=== PATIENT | female | born 2000 | race African-American/Black ===

== ENCOUNTER 2023-07-08 19:01 | Emergency (ER) | payer MEDICAID ==
[~2023-07-08] VITALS: Ht 167.6 cm; Wt 92.0 kg
[2023-07-08 19:08] VITALS: O2SAT 100
[2023-07-08] MEDS: PENICILLIN G BENZATHINE 2,400,000 UNITS/4ML SYR IM ONE (20:45)
[2023-07-08 21:00] VITALS: BP 125/80; PULSE 86; RESP 13; TEMP 99
== END 2023-07-08 21:04 | disposition home or self-care (01) ==
LOC: ER 19:01
DX: A53.9 Syphilis, unspecified (principal)
CPT/HCPCS: 99283; 96372; J0561